=== PATIENT | male | born 1995 | race Caucasian/White ===

== ENCOUNTER 2021-07-24 19:44 | Emergency (ER) | payer BC, SELFPAY ==
[~2021-07-24 19:44] MED LIST: Iopamidol 370 76% 100 ML VIAL ONE
[2021-07-24] MEDS ORDERED: CEFAZOLIN 1 GM VIAL ONE (20:17)
[2021-07-24] MEDS ORDERED: Sodium Chloride 0.9% 100 ML ONE (20:17)
[2021-07-24] MEDS ORDERED: Ketorolac Tromethamine 30 MG/ML VIAL ONE (20:17)
[2021-07-24] MEDS ORDERED: Boostrix 0.5 ML (Tdap) VIAL ONE (20:18)
[2021-07-24] MEDS ORDERED: Lidocaine 1% w/Epinephrine 1:100K 20 ML VIAL ONE (20:19)
[2021-07-24 20:41] LABS: #Lymphocytes 0.8 thou/uL (1.20-3.40); #Monocytes 0.9 thou/uL (0.11-0.59); #Neutrophils 9.9 thou/uL (1.40-6.50); %Basophils 0.3 % (0.0-1.0); %Eosinophils 0.4 % (0.0-10.0); %Lymphocytes 7.1 % (21.0-51.0); %Monocytes 7.9 % (0.0-10.0); %Neutrophils 84.4 % (42.0-75.0); Hemoglobin 15.7 g/dL (14.0-18.0); Mean Corpuscular HGB CONC 34.3 g/dL (32.0-36.0); Mean Corpuscular Hemoglobin 31.9 pg (27.0-31.0); Mean Platelet Volume 7.2 fL (7.4-10.4); Platelet Count 210 thou/uL (130-400); Red Blood Cell (RBC) Count 4.92 mill/uL (4.70-6.10); White Blood Cell (WBC) Count 11.7 thou/uL (4.8-10.8)
[2021-07-24 20:50] LABS: Bilirubin Negative (Negative); Blood, Urine Negative (Negative); Clarity Clear (Clear); Glucose, Urine (Dipstick) Normal (Negative); Ketone, Urine Negative (Negative); Leukocyte Negative Leu/uL (Negative); Nitrite Negative (Negative); Protein, Urine (Dipstick) 20 mg/dL (Neg-Trace); Urobilinogen Normal mg/dL (Less than 2)
[2021-07-24] MEDS ORDERED: Midazolam HCl 2 mg/2 ml Vial ONE (21:37)
[2021-07-24 22:07] LABS: ALT (SGPT) 21 U/L (8-55); AST (SGOT) 26 U/L (5-34); Acetaminophen Less than 6.0 mcg/mL (10.0-30.0); Albumin 4.5 g/dL (3.5-5.0); Alcohol Less than 10 mg/dL (Less than 10); Alkaline Phosphatase 67 U/L (40-110); Anion Gap 17 mmol/L (10-20); BUN (Urea Nitrogen) 15 mg/dL (8.9-20.6); Bilirubin, Total 0.4 mg/dL (0.2-1.2); Calc. Creatinine Clearance 0 mL/min (70-130); Calcium 9.2 mg/dL (7.8-10.44); Carbon Dioxide 21 mmol/L (22-29); Chloride 102 mmol/L (98-107); Globulin 2.8 g/dL (2.4-3.5); Glucose 114 mg/dL (70-105); Potassium 3.3 mmol/L (3.5-5.1); Protein, Total 7.3 g/dL (6.0-8.3); Salicylate Less than 8.0 mg/dL (15.0-30.0); Sodium 137 mmol/L (136-145)
[2021-07-24] MEDS ORDERED: Bacitracin 1 PK ONE (23:35)
== END 2021-07-24 23:44 | disposition home or self-care (01) ==
LOC: ERS 19:44
DX: S32.019A Unspecified fracture of first lumbar vertebra, initial encounter for closed fracture (principal); S41.112A Laceration without foreign body of left upper arm, initial encounter; S01.412A Laceration without foreign body of left cheek and temporomandibular area, initial encounter; Z23 Encounter for immunization; V69.40XA Driver of heavy transport vehicle injured in collision with unspecified motor vehicles in traffic accident, initial encounter
CPT/HCPCS: 12006; 12013; 36415; 70450; 71045; 74177; 80053; 80307; 81003; 84443; 84484; 85025; 90471; 90715; 93005; 96365; 96375; J0690; J1885; J2250; J3490; Q9967